=== PATIENT | female | born 2005 | race Hispanic/Latino ===

== ENCOUNTER 2023-08-06 15:10 | Emergency (ER) | payer OTHER ==
[~2023-08-06] VITALS: Ht 152.4 cm; Wt 53.5 kg
[2023-08-06 16:18] VITALS: BP 115/68; PULSE 115; RESP 22
== END 2023-08-06 20:11 | disposition left against medical advice (07) ==
LOC: EDH 15:10
DX: R05.9 Cough, unspecified (principal); Z53.21 Procedure and treatment not carried out due to patient leaving prior to being seen by health care provider
CPT/HCPCS: 99281